=== PATIENT | female | born 1945 | race Caucasian/White ===

== ENCOUNTER 2017-02-02 03:05 | Emergency (ER) | payer OTHER ==
[~2017-02-02] VITALS: Ht 154.9 cm; Wt 53.5 kg
[2017-02-02] MEDS ORDERED: DICLOFENAC SODI75 MG PO (03:33)
[2017-02-02] MEDS ORDERED: LOTENSIN20 MG PO (03:33)
[2017-02-02] MEDS ORDERED: LIPITOR80 MG PO (03:33)
[2017-02-02] MEDS ORDERED: ASPIRIN81 M2 PO (03:34)
[2017-02-02] MEDS ORDERED: MILK THISTLE175 M1 PO (03:37)
[2017-02-02] MEDS ORDERED: SLEEP AID50 MG PO (03:37)
[2017-02-02] MEDS ORDERED: FISH OIL 1,001000 M2 PO (03:37)
[2017-02-02] MEDS ORDERED: ZOFRAN ODT4 MG PO (03:48)
[2017-02-02] MEDS ORDERED: BENTYL 20 MG TA20 M1 PO (03:48)
[2017-02-02 04:15] VITALS: BP 124/59
== END 2017-02-02 04:16 | disposition home or self-care (01) ==
LOC: ER 03:05
DX: K52.9 Noninfective gastroenteritis and colitis, unspecified (principal); F17.210 Nicotine dependence, cigarettes, uncomplicated; Z88.0 Allergy status to penicillin

== ENCOUNTER 2017-08-24 10:11 | Emergency (ER) | payer OTHER ==
[~2017-08-24] VITALS: Ht 157.5 cm; Wt 55.8 kg
--- NOTE | ~2017-08-24 | EKG ---
[place] [address] [facility] [place] [address] ELECTROCARDIOGRAM REPORT Name: RASHAUN REVELESSHANNON CHRISTIE Room #: DEP [facility]#: [id number] Admission: 08/24/17 Attend Phys: Discharge: 08/24/17 Date of : 45 Report #: [id number] THIS REPORT FOR: //name// 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
[~2017-08-24 10:11] MED LIST: ASPIRIN81 M2 PO; BENTYL 20 MG TA20 M1 PO; DICLOFENAC SODI75 MG PO; FISH OIL 1,001000 M2 PO; LIPITOR80 MG PO; LOTENSIN20 MG PO; MILK THISTLE175 M1 PO; SLEEP AID50 MG PO; ZOFRAN ODT4 MG PO
[2017-08-24] MEDS ORDERED: IBUPROFEN 400400 M2 PO (11:19)
[2017-08-24 11:53] VITALS: BP 194/68
== END 2017-08-24 12:05 | disposition home or self-care (01) ==
LOC: ER 10:11
DX: M26.601 Right temporomandibular joint disorder, unspecified (principal); F17.210 Nicotine dependence, cigarettes, uncomplicated; Z88.0 Allergy status to penicillin